=== PATIENT | female | born 1990 | race Caucasian/White ===

== ENCOUNTER 2018-08-29 18:33 | Inpatient (IN) | payer OTHER ==
[2018-08-29] MEDS ORDERED: MISOPROSTOL 200 MCG TAB PR (20:00)
[2018-08-29] MEDS ORDERED: OXYTOCIN 30 UNITS/LR 500 ML IV (20:00)
[2018-08-29] MEDS ORDERED: CARBOPROST 250 MCG INJ IM (20:00)
[2018-08-29] MEDS ORDERED: LIDOCAINE 1% (MPF) 30 ML INJ INJ (20:00)
[2018-08-29] MEDS ORDERED: IBUPROFEN 600 MG TAB PO (20:00)
[2018-08-29] MEDS ORDERED: METHYLERGONOVINE 0.2 MG INJ IM (20:00)
[2018-08-29] MEDS: LACTATED RINGER'S 1,000 ML IV (20:18)
[2018-08-29 20:19] LABS: ADD MAN DIFF? NO
[2018-08-29 20:30] LABS: WHITE BLOOD COUNT 9.5 10^3/ul (4.8-10.8)
[2018-08-29 20:30] LABS: BASOPHILS % 0.3 % (0.0-2.0); EOSINOPHILS # 0.1 10^3/ul (0.0-0.5); EOSINOPHILS % 0.7 % (0.0-7.0); HEMATOCRIT 30.7 % (37.0-47.0); LYMPHOCYTES # 1.9 10^3/ul (0.8-2.9); LYMPHOCYTES % 20.4 % (15.0-51.0); MEAN CORPUSCULAR HEMOGLOBIN 30.1 pg (29.0-33.0); MEAN CORPUSCULAR HGB CONC 32.6 g/dl (32.0-37.0); MEAN CORPUSCULAR VOLUME 92.5 fl (82.0-101.0); MEAN PLATELET VOLUME 11.5 fl (7.4-10.4); MONOCYTE # 0.4 10^3/ul (0.3-0.9); MONOCYTES % 3.8 % (0.0-11.0); NEUTROPHIL # 7.1 10^3/ul (1.6-7.5); NEUTROPHILS % 74.2 % (39.0-77.0); PLATELET COUNT 267 10^3/UL (140-415); RED BLOOD COUNT 3.32 10^6/ul (4.20-5.40); RED CELL DISTRIBUTION WIDTH 15.7 % (11.5-14.5)
[2018-08-29 20:50] LABS: INR 0.84; PROTIME 11.6 Sec (11.9-14.9); PT RATIO 0.9
[2018-08-29 20:51] LABS: PARTIAL THROMBOPLASTIN TIME 26.4 Sec (23.0-35.0)
[2018-08-29] MEDS: MISOPROSTOL 50 MCG CAPSULE PO (21:05)
[2018-08-29 21:26] LABS: HEPATITIS B SURFACE ANTIGEN NEGATIVE (NEGATIVE)
[2018-08-30] MEDS: LACTATED RINGER'S 1,000 ML IV ×4 (01:05→20:19)
[2018-08-30] MEDS: MISOPROSTOL 50 MCG CAPSULE PO ×5 (01:30→20:18)
[2018-08-30 15:56] LABS: RAPID PLASMA REAGIN NONREACTIVE (NR)
[2018-08-30] MEDS: BUTORPHANOL 2 MG INJ IV (23:07)
[2018-08-31] MEDS ORDERED: FENTAnyl 2MCG/ML-ROPIV 0.2% 100 ML (00:55)
[2018-08-31] MEDS ORDERED: NALOXONE (0.4 MG/ML) INJ IV (01:00)
[2018-08-31] MEDS: LACTATED RINGER'S 1,000 ML IV ×4 (01:04→17:28)
[2018-08-31] MEDS: OXYTOCIN 30 UNITS/LR 500 ML IV ×4 (01:07→23:55)
[2018-08-31] MEDS: FENTAnyl 2MCG/ML-ROPIV 0.2% 100 ML BAG EPI ×2 (08:19→09:55)
[2018-08-31] MEDS ORDERED: ONDANSETRON 4 MG INJ (08:26)
[2018-08-31] MEDS: ONDANSETRON 4 MG INJ IV (09:01)
[2018-08-31] MEDS ORDERED: TERBUTALINE 1 ML (11:33)
[2018-08-31] MEDS: TERBUTALINE 1 MG/ML INJ SC (11:40)
[2018-08-31] MEDS: MINERAL OIL LIGHT 10 ML VIAL TOP (18:57)
[2018-08-31] MEDS ORDERED: MISOPROSTOL 200 MCG TAB PR (22:00)
[2018-08-31] MEDS ORDERED: CARBOPROST 250 MCG INJ IM (22:00)
[2018-08-31] MEDS ORDERED: ZOLPIDEM 5 MG TAB PO (22:00)
[2018-08-31] MEDS ORDERED: OXYCODONE/ASPIRIN (4.88/325) TAB PO ×2 (22:00)
[2018-08-31] MEDS ORDERED: METHYLERGONOVINE 0.2 MG INJ IM (22:00)
[2018-08-31] MEDS: IBUPROFEN 600 MG TAB PO (23:55)
[2018-08-31] MEDS: BENZOCAINE 20% 56 ML SPRAY TOP (23:55)
[2018-08-31] MEDS: WITCH HAZEL/GLYCERIN PAD PR (23:55)
[2018-09-01] MEDS: IBUPROFEN 600 MG TAB PO ×4 (06:12→23:58)
[2018-09-01] MEDS: SENNA/DOCUSATE NA (8.6MG/50MG) TAB PO ×2 (08:44→20:56)
[2018-09-01 08:50] LABS: ADD MAN DIFF? NO
[2018-09-01 08:54] LABS: BASOPHIL # 0.1 10^3/ul (0.0-0.1); BASOPHILS % 0.2 % (0.0-2.0); EOSINOPHILS # 0.1 10^3/ul (0.0-0.5); EOSINOPHILS % 0.3 % (0.0-7.0); HEMATOCRIT 24.7 % (37.0-47.0); HEMOGLOBIN 8.2 g/dl (12.0-16.0); LYMPHOCYTES # 1.9 10^3/ul (0.8-2.9); LYMPHOCYTES % 9.2 % (15.0-51.0); MEAN CORPUSCULAR HEMOGLOBIN 30.5 pg (29.0-33.0); MEAN CORPUSCULAR HGB CONC 33.2 g/dl (32.0-37.0); MEAN CORPUSCULAR VOLUME 91.8 fl (82.0-101.0); MEAN PLATELET VOLUME 11.8 fl (7.4-10.4); MONOCYTE # 1.2 10^3/ul (0.3-0.9); MONOCYTES % 5.9 % (0.0-11.0); NEUTROPHIL # 17.4 10^3/ul (1.6-7.5); NEUTROPHILS % 83.8 % (39.0-77.0); PLATELET COUNT 178 10^3/UL (140-415); RED BLOOD COUNT 2.69 10^6/ul (4.20-5.40); RED CELL DISTRIBUTION WIDTH 15.9 % (11.5-14.5)
[2018-09-01 08:54] LABS: WHITE BLOOD COUNT 20.8 10^3/ul (4.8-10.8)
[2018-09-01] MEDS: LANOLIN HPA 1 PKT TOP (08:55)
[2018-09-02] MEDS: IBUPROFEN 600 MG TAB PO ×2 (05:55→12:10)
[2018-09-02] MEDS: DIPHTH/TET/ACEL PERTUSS (ADULT) 0.5 ML VIAL IM* (09:02)
[2018-09-02] MEDS: SENNA/DOCUSATE NA (8.6MG/50MG) TAB PO (09:02)
[2018-09-02 09:15] LABS: ADD MAN DIFF? NO
[2018-09-02 09:21] LABS: BASOPHILS % 0.3 % (0.0-2.0); EOSINOPHILS # 0.2 10^3/ul (0.0-0.5); EOSINOPHILS % 1.3 % (0.0-7.0); HEMATOCRIT 25.6 % (37.0-47.0); HEMOGLOBIN 8.2 g/dl (12.0-16.0); LYMPHOCYTES # 2.2 10^3/ul (0.8-2.9); LYMPHOCYTES % 16.1 % (15.0-51.0); MEAN CORPUSCULAR HEMOGLOBIN 29.5 pg (29.0-33.0); MEAN CORPUSCULAR VOLUME 92.1 fl (82.0-101.0); MEAN PLATELET VOLUME 11.1 fl (7.4-10.4); MONOCYTE # 0.7 10^3/ul (0.3-0.9); MONOCYTES % 4.8 % (0.0-11.0); NEUTROPHIL # 10.3 10^3/ul (1.6-7.5); NEUTROPHILS % 76.6 % (39.0-77.0); PLATELET COUNT 184 10^3/UL (140-415); RED BLOOD COUNT 2.78 10^6/ul (4.20-5.40); RED CELL DISTRIBUTION WIDTH 16.1 % (11.5-14.5)
[2018-09-02 09:21] LABS: WHITE BLOOD COUNT 13.4 10^3/ul (4.8-10.8)
[2018-09-02] MEDS: LANOLIN HPA 1 PKT TOP (12:10)
[2018-09-02] MEDS: MEASLES,MUMPS,RUBELLA VACCINE INJ SC* (14:52)
== END 2018-09-02 14:25 | disposition home or self-care (01) | DRG 807 ==
LOC: PP1 08-31 21:21 → L-D 18:33
PROVIDERS: Specialist
PROC: 3E033VJ Introduction of Other Hormone into Peripheral Vein, Percutaneous Approach (ICD-10-PCS; 2018-08-29 17:00)
DX: O48.0 Post-term pregnancy (principal); O77.0 Labor and delivery complicated by meconium in amniotic fluid; Z37.0 Single live birth; Z3A.40 40 weeks gestation of pregnancy
CPT/HCPCS: 62319; 76815; 85025; 85610; 85730; 86592; 86850; 86900; 86901; 87340; 99464